=== PATIENT | male | born 1960 | race Caucasian/White ===

== ENCOUNTER 2023-03-30 14:24 | Emergency (ER) | payer MEDICAID ==
[2023-03-30] MEDS ORDERED: Sodium Chloride 0.9% 10 ML Syringe FLUSH PRN (14:45)
[2023-03-30] MEDS: Sodium Chloride 0.9% 1,000 ML IV ONE ×2 (14:50→16:01)
[2023-03-30] MEDS: Sodium Chloride 0.9% 1,000 ML ONE (14:51)
[2023-03-30 14:55] LABS: BASOPHILS ABSOLUTE AUTO 0.01 10^3/uL (0.00-0.10); BASOPHILS PERCENT AUTO 0.1 % (0.0-1.0); EOSINOPHILS ABSOLUTE AUTO 0.01 10^3/uL (0.10-0.30); EOSINOPHILS PERCENT AUTO 0.1 % (1.0-3.0); HEMATOCRIT 51.7 % (40.0-52.0); HEMOGLOBIN 17.7 g/dL (13.0-17.0); LYMPHOCYTES ABSOLUTE AUTO 1.06 10^3/uL (1.00-4.00); LYMPHOCYTES PERCENT AUTO 13.1 % (20.0-40.0); MEAN CORPUSCULAR HEMOGLOBIN 32.7 pg (27.0-31.0); MEAN CORPUSCULAR HGB CONC 34.2 g/dL (32.0-36.0); MEAN CORPUSCULAR VOLUME 95.4 fL (82.0-92.0); MEAN PLATELET VOLUME 9.4 fL (7.4-10.4); MONOCYTES ABSOLUTE AUTO 0.57 10^3/uL (0.10-0.80); NEUTROPHILS ABSOLUTE AUTO 6.45 10^3/uL (2.50-7.00); NEUTROPHILS PERCENT AUTO 79.7 % (50.0-70.0); PLATELET COUNT,PLT 163 10^3/uL (150-400); RED BLOOD CELL COUNT 5.42 10^6/uL (4.50-6.00); RED CELL DISTRIBUTION WIDTH 14.2 % (11.5-14.5)
[2023-03-30 15:34] LABS: ALANINE AMINOTRANSFERASE,ALT 35 U/L (14-63); ALBUMIN 3.39 g/dL (3.40-5.00); ALKALINE PHOSPHATASE 110 U/L (46-116); ANION GAP 15.9 mmol/L (5-15); ASPARTATE AMNIOTRANSFERASE,AST 28 U/L (15-37); BILIRUBIN TOTAL 0.5 mg/dL (0.2-1.0); BLOOD UREA NITROGEN,BUN 15 mg/dL (7-18); CARBON DIOXIDE,CO2 25.7 mmol/L (21.0-32.0); CHLORIDE,CL 97 mmol/L (98-107); CREATININE 1.23 mg/dL (0.51-1.17); GLUCOSE RANDOM 144 mg/dL (70-140); LIPASE 77 U/L (73-393); POTASSIUM,K 5.6 mmol/L (3.5-5.1); PROTEIN TOTAL,TP 8.2 g/dL (6.4-8.2); SODIUM,NA 133 mmol/L (136-145)
[2023-03-30 15:39] LABS: ESTIMATED GFR 66 mL/min (>=60)
[2023-03-30 15:40] LABS: C-REACTIVE PROTEIN < 0.4 mg/dL (0.0-0.9)
[2023-03-30] MEDS: Ondansetron 4 MG/2 ML SDV IVPUSH ONE (16:04)
[2023-03-30 17:07] LABS: APPEARANCE,URINE CLEAR (CLEAR); BILIRUBIN,URINE NEGATIVE (NEGATIVE); COLOR,URINE YELLOW (YELLOW); GLUCOSE,URINE NEGATIVE (NEGATIVE); KETONES,URINE 40 mg/dL (NEGATIVE); LEUKOCYTE ESTERASE,URINE NEGATIVE (NEGATIVE); NITRITE,URINE NEGATIVE (NEGATIVE); OCCULT BLOOD,URINE SMALL (NEGATIVE); PROTEIN,URINE TRACE mg/dL (NEGATIVE); UROBILINOGEN,URINE 0.2 E.U./dL (0.2-1.0)
[2023-03-30 17:13] LABS: BACTERIA,URINE RARE /HPF (NONE TO FEW); EPITHELIAL CELLS,URINE FEW /LPF; MUCUS,URINE FEW /LPF (NEGATIVE); RBC,URINE 0-5 /HPF (0-5); WBC,URINE 0-5 /HPF (0-5)
== END 2023-03-30 18:15 | disposition home or self-care (01) ==
LOC: KA.ED 14:24
DX: E86.0 Dehydration (principal); R11.2 Nausea with vomiting, unspecified; N28.9 Disorder of kidney and ureter, unspecified; F17.210 Nicotine dependence, cigarettes, uncomplicated
CPT/HCPCS: 36415; 80053; 81001; 83605; 83690; 84484; 85025; 86140; 93005; 93010; 96361; 96374; 99284; 99284-25; J2405; J7030